=== PATIENT | male | born 1960 | race Caucasian/White ===

== ENCOUNTER 2024-03-27 13:39 | Emergency (ER) | payer BC ==
[2024-03-27] MEDS ORDERED: Acetaminophen 500 MG TAB ONE (13:49)
[2024-03-27] MEDS ORDERED: Sodium Chloride 0.9% 100 ML ONE (14:01)
[2024-03-27] MEDS ORDERED: cefTRIAXone (ROCEPHIN) 2 GM VIAL ONE (14:01)
[2024-03-27 14:17] LABS: INR-International Normal Ratio 1.1; Prothrombin Time 13.7 sec (12.0-14.7)
[2024-03-27 14:18] LABS: PTT 27.4 sec (22.9-36.1)
[2024-03-27] MEDS ORDERED: Sodium Chloride 0.9% 500 ML ONE (14:19)
[2024-03-27 14:27] LABS: ALT (SGPT) 37 U/L (8-55); AST (SGOT) 22 U/L (5-34); Albumin 3.3 g/dL (3.4-4.8); Alkaline Phosphatase 94 U/L (40-110); Anion Gap 16 mmol/L (10-20); Anisocytosis SLIGHT = 6-15 cells (100X) (0-5/hpf); BUN (Urea Nitrogen) 11 mg/dL (8.4-25.7); Band 19 % (5-11); Bilirubin, Total 0.6 mg/dL (0.2-1.2); Calc. Creatinine Clearance 0 mL/min (70-130); Carbon Dioxide 24 mmol/L (23-31); Chloride 101 mmol/L (98-107); Estimated GFR 98; Globulin 3.3 g/dL (2.4-3.5); Glucose 243 mg/dL (80-115); Hemoglobin 14.7 g/dL (14.0-18.0); Hypochromia SLIGHT = 6-15 cells (100X) (0-5/hpf); Lymphocytes 7 % (21-51); MDiff Complete? YES; Mean Corpuscular HGB CONC 30.6 g/dL (32.0-36.0); Mean Corpuscular Hemoglobin 26.5 pg (27.0-31.0); Mean Corpuscular Volume 86.6 fl (78.0-98.0); Mean Platelet Volume 6.8 fL (7.4-10.4); Monocytes 14 % (0-10); Neutrophil 56 % (42-75); Platelet Adequacy Comment Appears Adequate; Platelet Count 311 10x3/uL (130-400); Potassium 3.5 mmol/L (3.5-5.1); Protein, Total 6.6 g/dL (5.8-8.1); RBC Distribution Width 13.2 % (11.5-14.5); Red Blood Cell (RBC) Count 5.55 mill/uL (4.70-6.10); Sodium 137 mmol/L (136-145); White Blood Cell (WBC) Count 22.1 10x3/uL (4.8-10.8)
[2024-03-27] MEDS ORDERED: Azithromycin 500 MG VIAL ONE (14:27)
[2024-03-27] MEDS ORDERED: Sodium Chloride 0.9% 250 ML 250 ML ONE (14:27)
[2024-03-27 14:29] LABS: Troponin I 0.018 ng/mL (< 0.028)
[2024-03-27] MEDS ORDERED: dilTIAZem 25 MG/5 ML VIAL ONE ×2 (14:34→15:04)
[2024-03-27] MEDS ORDERED: dilTIAZem 30 MG TAB ONE (15:25)
[2024-03-27 15:36] LABS: Bilirubin Negative (Negative); Blood, Urine Moderate (Negative); Clarity Hazy (Clear); Glucose, Urine (Dipstick) Negative (Negative); Ketone, Urine Trace mg/dL (Negative); Leukocyte Negative (Negative); Nitrite Negative (Negative); Protein, Urine (Dipstick) Negative (Neg-Trace); Urobilinogen 0.2 mg/dL (Less than 2)
[2024-03-27 15:39] LABS: Bacteria/HPF Rare-Few HPF (None Seen); CAUTI Indications for Culture Pelvic or flank pain; Squamous Epithelial 0-3 HPF (0-3); WBC/HPF 0-3 HPF (0-3)
[2024-03-27 15:40] LABS: Urine Culture Reflex No No
== END 2024-03-27 16:04 | disposition short-term general hospital (02) ==
LOC: MADERS 13:39
DX: I48.91 Unspecified atrial fibrillation (principal); R50.9 Fever, unspecified; I10 Essential (primary) hypertension; E11.9 Type 2 diabetes mellitus without complications; E66.01 Morbid (severe) obesity due to excess calories; E78.00 Pure hypercholesterolemia, unspecified; F17.290 Nicotine dependence, other tobacco product, uncomplicated; Z79.84 Long term (current) use of oral hypoglycemic drugs; Z79.899 Other long term (current) drug therapy
CPT/HCPCS: 36416; 71045; 80053; 81001; 83605; 83880; 84484; 85025; 85610; 85730; 87040; 87400; 87426; 93005; 96365; 96375; 36415-59; J0456; J0696; J7030; J7050

== ENCOUNTER 2024-05-27 13:16 | Outpatient (CLI) | payer BC | END 2024-05-27 13:17 | disposition home or self-care (01) | LOC: MADRAD 13:16 | PROVIDERS: ATTEND Registered Nurse | DX: J06.9 Acute upper respiratory infection, unspecified (principal) | CPT/HCPCS: 71046 ==